=== PATIENT | male | born 1990 | race Caucasian/White ===

== ENCOUNTER 2017-10-20 13:01 | Emergency (ER) | payer MEDICAID ==
[~2017-10-20] VITALS: Ht 193 cm; Wt 138.1 kg
[2017-10-20] MEDS ORDERED: BUPR-173 PO (13:37)
[2017-10-20 13:55] LABS: HEMATOCRIT 47.4 % (39.2-51.8); HEMOGLOBIN 16.4 g/dL (13.7-18.0); WHITE BLOOD COUNT 6.1 x10^3/uL (3.4-10)
[2017-10-20 14:06] LABS: DAU SCREEN DISCLAIMER
[2017-10-20 14:06] LABS: BLOOD UREA NITROGEN 9 mg/dL (7-18)
[2017-10-20 17:27] VITALS: BP 113/67
== END 2017-10-20 18:22 | disposition home or self-care (01) ==
LOC: ED 14:15
DX: F31.81 Bipolar II disorder (principal); F25.9 Schizoaffective disorder, unspecified
CPT/HCPCS: 36415; 80048; 80307; 82040; 85025; 99284; G0479